=== PATIENT | female | born 1975 | race Caucasian/White ===

== ENCOUNTER 2024-08-10 06:12 | Day surgery (SDC) | payer BC, SELFPAY | END 2024-08-10 10:17 | disposition home or self-care (01) | LOC: GI 06:12 | PROVIDERS: ATTENDING PHYSICIAN Internal Medicine Gastroenterology | DX: K63.5 Polyp of colon (principal); K63.89 Other specified diseases of intestine; K57.30 Diverticulosis of large intestine without perforation or abscess without bleeding; K64.8 Other hemorrhoids; K59.00 Constipation, unspecified; R19.4 Change in bowel habit; K29.50 Unspecified chronic gastritis without bleeding; K31.89 Other diseases of stomach and duodenum; R12 Heartburn | CPT/HCPCS: 45380; 43239; 88305; 88342 ==